=== PATIENT | female | born 1945 | race Caucasian/White ===

== ENCOUNTER 2017-06-08 14:34 | Emergency (ER) | payer MEDICARE, BC ==
[2015-12-17 11:53] VITALS: BMI 33.9
[~2017-06-08 14:34] MED LIST: ACETAMINOPHEN PO; ASPIRIN325 MG PO; ASPIRIN81 MG PO; BENADRYL25 MG PO; BENADRYL50 MG PO; CALCIUM 600+D T1 TA1 PO; ECOTRIN325 MG PO; EFFIENT10 MG PO; FISH OIL 1,2001 CAP PO; HCTZ25 MG PO; HYDROCODON-ACE1 EAC7 PO; ICAR C PLUS PO; IMDUR30 MG PO; ISOSORBIDE MONO30 M1 PO; LEVAQUIN500 MG PO; LISINOPRIL5 MG PO; MULTIPLE VITAMI1 TA1 PO; NIASPAN500 MG PO; NITROSTAT0.4 MG SL; OCUVITE TABLET1 TA1 PO; PLAVIX75 MG PO; PROZAC10 MG PO; PROZAC20 MG PO; ROBAXIN-750750 MG PO; SYNTHROID50 MCG PO; SYNTHROID75 MCG PO; SYSTANE 0.3-0.4%5 ML EACH EYE; TYLENOL ARTHRITIS; TYLENOL ARTHRITIS PO; VISION FORMULA 50+; VITAMIN C1000 MG PO; VITAMIN D3 PO; XARELTO15 MG PO; XARELTO20 MG PO; ZESTRIL40 MG PO
[2017-06-08 16:08] LABS: BASOPHILS 0.2 % (0-2); EOSINOPHILS 1.3 % (0-7); HEMATOCRIT 37.4 % (36.0-48.0); HEMOGLOBIN 12.2 g/dL (12-16); IMMATURE GRANULOCYTES 0.3 % (0-5); LYMPHOCYTES 27.2 % (15-50); MCH 30.1 pg (26.0-34.0); MCHC 32.6 g/dL (31.0-37.0); MCV 92.3 fL (80.0-100.0); MEAN PLATELET VOLUME 9.4 fL (7.4-10.4); MONOCYTES 8.8 % (2-11); NEUTROPHILS 62.2 % (40-80); PLATELET COUNT 197 10x3/uL (130-400); RBC 4.05 10x6/uL (4.00-5.40); RDW 14.8 % (11.5-14.5); WBC 6.3 10x3/uL (4.8-10.8)
[2017-06-08 16:31] LABS: ALBUMIN 3.9 g/dL (3.4-5.0); ALKALINE PHOSPHATASE 71 U/L (46-116); ALT (SGPT) 26 U/L (10-68); C-REACTIVE PROTEIN 3.3 mg/dL (0.0-0.9); CALC OSMOLALITY 286 mosm/kg (275-300); CALCIUM 9.1 mg/dL (8.5-10.1); CARBON DIOXIDE 22.9 mmol/L (21.0-32.0); CHLORIDE - SERUM 107 mmol/L (98-107); CREATININE - SERUM 0.8 mg/dL (0.6-1.3); GLUCOSE 85 mg/dL (74-106); POTASSIUM - SERUM 4.4 mmol/L (3.5-5.1); PROTEIN - SERUM 6.9 g/dL (6.4-8.2); SODIUM 142 mmol/L (136-145); UREA NITROGEN 27 mg/dL (7-18); eGFR NON AFRICAN AMERICAN 75 mL/min (90-120)
[2017-06-08 17:20] LABS: ERYTHROCYTE SEDIMENTATION RATE 21 mm/hr (0-30)
== END 2017-06-08 18:11 | disposition home or self-care (01) ==
LOC: D.ER 14:34
PROVIDERS: Physician Assistant Medical
DX: H53.9 Unspecified visual disturbance (principal); I44.0 Atrioventricular block, first degree

== ENCOUNTER 2017-06-08 19:53 | Emergency (ER) | payer MEDICARE, BC ==
[2015-12-17 11:53] VITALS: BMI 33.9
== END 2017-06-09 00:30 | disposition critical access hospital (66) ==
LOC: D.ER 19:53
DX: I63.9 Cerebral infarction, unspecified (principal); E11.9 Type 2 diabetes mellitus without complications

== ENCOUNTER 2017-06-15 10:11 | Emergency (ER) | payer MEDICARE, BC ==
[2015-12-17 11:53] VITALS: BMI 33.9
[2017-06-15 11:15] LABS: BASOPHILS 0.3 % (0-2); EOSINOPHILS 1.2 % (0-7); HEMATOCRIT 38.1 % (36.0-48.0); HEMOGLOBIN 12.6 g/dL (12-16); IMMATURE GRANULOCYTES 0.4 % (0-5); MCH 29.9 pg (26.0-34.0); MCHC 33.1 g/dL (31.0-37.0); MCV 90.3 fL (80.0-100.0); MEAN PLATELET VOLUME 9.3 fL (7.4-10.4); MONOCYTES 7.5 % (2-11); NEUTROPHILS 74.6 % (40-80); PLATELET COUNT 219 10x3/uL (130-400); RBC 4.22 10x6/uL (4.00-5.40); RDW 14.5 % (11.5-14.5); WBC 7.3 10x3/uL (4.8-10.8)
[2017-06-15 11:32] LABS: APTT 38.9 SECONDS (22.8-39.4); INR 0.98 (0.85-1.17); PROTIME 12.5 SECONDS (11.6-15.0)
[2017-06-15 11:42] LABS: ALBUMIN 3.8 g/dL (3.4-5.0); ALKALINE PHOSPHATASE 79 U/L (46-116); ALT (SGPT) 33 U/L (10-68); CALC OSMOLALITY 286 mosm/kg (275-300); CALCIUM 9.9 mg/dL (8.5-10.1); CARBON DIOXIDE 22.1 mmol/L (21.0-32.0); CHLORIDE - SERUM 106 mmol/L (98-107); GLUCOSE 89 mg/dL (74-106); POTASSIUM - SERUM 4.9 mmol/L (3.5-5.1); PROTEIN - SERUM 7.1 g/dL (6.4-8.2); SODIUM 141 mmol/L (136-145); UREA NITROGEN 31 mg/dL (7-18); eGFR NON AFRICAN AMERICAN 58 mL/min (90-120)
[2017-06-15 12:00] LABS: CKMB 1.5 U/L (0.0-3.6); MAGNESIUM - SERUM 1.7 mg/dL (1.8-2.4); TROPONIN-I < 0.017 ng/mL (0.000-0.060)
== END 2017-06-15 14:22 | disposition other institution (70) ==
LOC: D.ER 10:11
PROVIDERS: Family Medicine
DX: G45.9 Transient cerebral ischemic attack, unspecified (principal); I44.0 Atrioventricular block, first degree

== ENCOUNTER 2017-09-22 13:54 | Emergency (ER) | payer MEDICARE, BC ==
[~2017-09-22] VITALS: Ht 167.6 cm; Wt 85.5 kg
[2017-09-22 14:01] VITALS: Ht 167.6 cm; Wt 85.5 kg
[2017-09-22] MEDS ORDERED: LISINOPRIL10 MG PO (14:07)
[2017-09-22] MEDS ORDERED: PRADAXA150 MG PO (14:07)
[2017-09-22] MEDS ORDERED: PLAQUENIL200 MG PO (14:08)
[2017-09-22] MEDS ORDERED: CYMBALTA30 MG PO (14:08)
[2017-09-22] MEDS ORDERED: ACETAMINOPHEN500 M1 PO (14:09)
[2017-09-22] MEDS ORDERED: DETROL2 MG PO (14:09)
[2017-09-22] MEDS ORDERED: LANOXIN125 MCG PO ×2 (14:19→14:22)
[2017-09-22] MEDS ORDERED: METOPROLOL TART25 MG (14:20)
[2017-09-22] MEDS ORDERED: CRESTOR5 MG PO (14:21)
[2017-09-22 16:18] VITALS: BP 188/93
[2017-09-22] MEDS ORDERED: HYDROCODON-ACE1 EAC7 PO (17:29)
== END 2017-09-22 23:00 ==
LOC: D.ER 13:54
DX: S51.012A Laceration without foreign body of left elbow, initial encounter (principal); W01.0XXA Fall on same level from slipping, tripping and stumbling without subsequent striking against object, initial encounter; Y93.89 Activity, other specified; Y92.019 Unspecified place in single-family (private) house as the place of occurrence of the external cause; S40.012A Contusion of left shoulder, initial encounter; S40.011A Contusion of right shoulder, initial encounter; S70.01XA Contusion of right hip, initial encounter

== ENCOUNTER 2017-10-10 17:22 | Inpatient (IN) | payer MEDICARE, BC ==
[~2017-10-10] VITALS: Ht 165.1 cm; Wt 83.2 kg
--- NOTE | ~2017-10-10 | DS ---
PATIENT:LEA HUNTLEY :47 MEDICAL RECORD: [id number] DISCHARGE SUMMARY ADMISSION DATE: 10/10/17 DISCHARGE DATE: 10/12/17 DATE OF ADMISSION: 10/10/2017 DATE OF DISCHARGE: 10/12/2017 ADMISSION DIAGNOSES: Reported syncopal event, urinary tract infection, mild chest pain with elevated cardiac enzymes. DISCHARGE DIAGNOSES: Syncopal event, urinary tract infection, chest pain. CONSULTS: Dr. Simons, cardiology. PROCEDURES: CT of the head, no acute process. MRI/MRA of the head with a history of aneurysm, no abnormal findings. HOSPITAL COURSE: The patient was admitted to the Emergency Room, lethargic with reported syncopal event earlier. Troponin was negative. CK and CK-MB were mildly elevated consistent with dehydration with extensive history of coronary artery disease. Cardiology was consulted and with abnormal EKG, the patient was cleared for any acute coronary syndrome. Urine cultures were obtained. The patient started on IV Levaquin. Cultures showed E. coli sensitive to Levaquin. The patient improved. The patient changed to p.o. Levaquin. Still remains weak, has multiple comorbidities. records analysis manager consulted for rehab evaluation. The patient is feeling much better, remains afebrile, discharged to rehab in significantly improved condition. PHYSICAL EXAMINATION: VITAL SIGNS ON DISCHARGE: Temperature 98.2, blood pressure 136/67, heart rate 61, respirations 18, O2 saturation 95%. HEART: Regular rate and rhythm. LUNGS: Clear. ABDOMEN: Soft, nontender. Bowel sounds all 4 quadrants. EXTREMITIES: Present times 4. NEUROLOGIC: No focal deficits. SKIN: Warm and dry. No rash. LABORATORY DATA: CBC: White count 9.2, hemoglobin 10.3, hematocrit 32, platelets 168. Chemistry shows sodium 142, potassium 4.2, chloride 109, bicarbonate 22.7, BUN 33, creatinine improved to 1.2 from 1.7 on admission. DISPOSITION: Again, the patient is discharged to rehab in improved condition. DISCHARGE MEDICATIONS: Per med rec. See chart for further details. TRANSINT:[id number] Voice Confirmation ID: [id number] DOCUMENT ID: [id number] DISCHARGE SUMMARY REPORT [id number] LEA HUNTLEY LEONID PAVON DO at 0725 CC: [id number] DICTATION DATE: 10/12/17 2240 ORTHOTIST PROSTHETIST: 10/12/17 1613 DIS IN 10/12/17 [facility] [address] [place], [facility]
--- NOTE | ~2017-10-10 | HP ---
PATIENT: LEA HUNTLEY MEDICAL RECORD: [id number] ACCOUNT: [id number] LOCATION:D.MS Patricia6 : 47 ADMISSION DATE: 10/10/17 HISTORY AND PHYSICAL EXAMINATION HISTORY OF PRESENT ILLNESS: A 71-year-old female brought in to the hospital by her daughter with unclear syncopal episode, nausea, vomiting, generalized weakness, history of recent CVA times 2, history of recent fall with laceration to her elbow, history of cerebral aneurysm, recommendation for surgery, but unclear if she would tolerate intervention. She has been evaluated by neurosurgery in [place]. History of paroxysmal atrial fibrillation. ALLERGIES: LISTED PENICILLIN, SULFA, CEPHALOSPORINS. CURRENT MEDICATIONS: [place] 5 p.r.n. pain, multivitamins, nitroglycerin p.r.n., lisinopril 10 mg daily, Pradaxa 150 mg b.i.d., Cymbalta 30 mg daily, Plaquenil 400 mg b.i.d., metoprolol 12.5 t.i.d., Crestor, digoxin, Imdur, levothyroxine 75 mcg daily. PAST MEDICAL HISTORY: Also includes hypertension, coronary artery disease, has had stents and angioplasty, severe peripheral vascular disease, prior [place]. FAMILY HISTORY: Significant for parents with cardiovascular disease, siblings with heart disease, child with heart disease. SOCIAL HISTORY: . No tobacco, no alcohol, no illicit drug use. REVIEW OF SYSTEMS: CONSTITUTIONAL: No known change in weight. Gradual diminished appetite. No acute change. HEENT: Denies cephalgia, visual changes, tinnitus, epistaxis, or dysphagia. CARDIOVASCULAR: No initial chest pain. Complained of chest pain and pressure upon arrival to the Emergency Room. PULMONARY: Denies hemoptysis. Denies night sweats. GASTROINTESTINAL: Denies hematemesis, hematochezia, or melena. Had initial nausea and vomiting, no recurrence. GENITOURINARY: Pain with urination, acute onset yesterday with fever and chills. MUSCULOSKELETAL: No acute changes. ENDOCRINE: Denies polyuria, polydipsia, or polyphagia. PHYSICAL EXAMINATION: VITAL SIGNS: Temperature 98.6, blood pressure is 99/63, heart rate 64, respirations 17, O2 sat 97% with O2 at 2 liters. HEENT: Head: Normocephalic, atraumatic. Eyes: Pupils equally round, reactive to light and accommodation. Extraocular muscles are intact. Conjunctivae not injected. Ears: Canals patent. TMs are intact. Nose: Nares patent without drainage. Throat: No erythema. No exudates. NECK: Supple. No lymphadenopathy. No JVD. HEART: Regular rate and rhythm. No S3 or S4. No rub. LUNGS: Clear to auscultation bilaterally. Breathing is nonlabored. ABDOMEN: Soft, nontender. Bowel sounds all 4 quadrants. EXTREMITIES: Present times 4. NEUROLOGIC: No focal deficits, answers appropriately, is lethargic. HISTORY AND PHYSICAL [id number] LEA HUNTLEY LABORATORY DATA: CK is 220. CK-MB is 4.3. Troponin less than 0.017. ProBNP elevated at 2359. Repeat CK after fluids 82, CK-MB 0.8. Troponin remains negative. Urinalysis: Yellow, hazy, trace blood, positive nitrites, 1+ leukocyte esterase, 10-25 wbc's per high-powered field, many bacteria. Lactic acid 1.7. CBC: White count 12.3, hemoglobin 12.6, hematocrit 38.2, platelets 206. Sodium 140, potassium 4.4, chloride 105, bicarbonate 25.8, BUN 37, creatinine 1.6, calcium 9.4, AST 17, ALT 24, T-bili 0.69, alkaline phosphatase 95. Preliminary urine culture, gram-negative rocio. CT of the head; prior infarcts, no acute pathology. Chest x-ray; subsegmental atelectasis in left lower lobe, no other significant findings. ASSESSMENT AND PLAN: 1. Syncopal episode. CT of the head negative. History of aneurysm with recommendations for surgical repair. We will obtain MRA of the head. 2. Urinary tract infection. C&S pending. Allergies noted. We will continue Levaquin at this time. 3. Chest pain, abnormal EKG, elevated cardiac enzymes likely secondary to dehydration. We will consult her dampener, Dr. Rose with her extensive history. We will check dig level. Monitor blood pressure. TRANSINT:[id number] Voice Confirmation ID: [id number] DOCUMENT ID: [id number] LEONID DENNY DO at 0812 CC: [id number] DICTATION DATE: 10/11/17 0803 WEB MANAGER: 10/11/17 [address] [facility] [address] [id number]
--- NOTE | ~2017-10-10 | EC ---
PATIENT:LEA HUNTLEY DATE OF SERVICE: 10/10/17 SEX: F MEDICAL RECORD: [id number] DATE OF : 47 LOCATION:D.MS Patricia AGE OF PATIENT: 72 ADMISSION DATE: 10/10/17 REFERRING PHYSICIAN: INTERPRETING PHYSICIAN: THOMAS GARCIA MD ECHOCARDIOGRAM REPORT ECHO CHARGES 4 ECHO COMPLETE Date: 10/11 CLINICAL DIAGNOSIS: CHEST PAIN ECHOCARDIOGRAPHIC MEASUREMENTS (adult normal given) AC root (d.<3.7cm) 3.0 cm LV Septum d (<1.2 cm> 1.5 cm Valve Excursion 1.2 cm LV Septum (systole) 1.7 cm Left Atria (s.<4.0cm> 4.2 cm LVPW d(<1.2cm) 1.3 cm RV (d.<2.3cm) 3.4 cm LVPW (sytole) 1.5 cm LV diastole(<5.6CM) 4.6 cm MV E-F(>70mm/sec) cm LV systole 3.5 cm LVOT Diameter 1.9 cm MV exc.(>10mm) 1.6 cm Est.ejection fraction (50-75%) % DOPPLER: LVIT cm/sec A 61.0 cm/sec E 79.0 cm/sec LA cm/sec RVSP 20 mmHg LVOT 95 cm/sec AOP1/2T m/s Asc. Ao 153 cm/sec RVOT 79 cm/sec RA cm/sec PA 115 cm/sec AV Gradient Peak 9.31 mmHg AV Mean 4.68 mmHg AV Area 1.6 cm MV Gradient Peak 3.42 mmHg MV Mean 1.32 mmHg MV Area cm COMMENTS: It Integration Architect: 2 DAMON JACOBS Upset Operator: 4 Dr. Garcia TAPE# PACS Pericardial Effusion N DATE OF SERVICE: PROCEDURE: Transthoracic echocardiogram. FINDINGS: 1. Left ventricle shows evidence of mild left ventricular hypertrophy. Inflow characteristics are normal. Ejection fraction is 45% to 50%. Has posterior akinesis and inferior mild hypokinesis. Rest of the santiago have normal structure and function. 2. The left atrium is mildly dilated. ECHOCARDIOGRAM REPORT [id number] LEA HUNTLEY 3. Aortic valve is grossly normal. Difficult to visualize. There is no evidence of significant stenosis or regurgitation. 4. The mitral valve has normal structure and function. There is [id number] mitral regurgitation. 5. Tricuspid valve has trace tricuspid regurgitation. RVSP is normal. 6. The right ventricle is mildly dilated. 7. The right atrium is mildly dilated. 8. The pulmonic valve is grossly normal. 9. There is no pericardial effusion. 10. The IVC is shown to be normal size and collapses with inspiration with normal CVP. CONCLUSIONS: The patient has evidence of mild left ventricular hypertrophy. There is regional wall motion abnormalities that is consistent with a possible old infarction. TRANSINT:[id number] Voice Confirmation ID: [id number] DOCUMENT ID: [id number] THOMAS GARCIA MD at 0737 CC: [id number] DICTATION DATE: 10/16/17900 COTTON AGENT: 10/16/17914 DIS IN 10/12/17 [facility] [address] [place] [address]
[~2017-10-10 17:22] MED LIST changes: +ACETAMINOPHEN500 M1 PO; +CRESTOR5 MG PO; +CYMBALTA30 MG PO; +DETROL2 MG PO; +LANOXIN125 MCG PO; +LISINOPRIL10 MG PO; +METOPROLOL TART25 MG; +PLAQUENIL200 MG PO; +PRADAXA150 MG PO
[2017-10-10 18:39] LABS: BASOPHILS 0.1 % (0-2); EOSINOPHILS 0.2 % (0-7); HEMATOCRIT 38.2 % (36.0-48.0); HEMOGLOBIN 12.6 g/dL (12-16); IMMATURE GRANULOCYTES 0.2 % (0-5); LYMPHOCYTES 4.3 % (15-50); MCH 29.8 pg (26.0-34.0); MCV 90.3 fL (80.0-100.0); MEAN PLATELET VOLUME 9.4 fL (7.4-10.4); MONOCYTES 3.9 % (2-11); NEUTROPHILS 91.3 % (40-80); PLATELET COUNT 206 10x3/uL (130-400); RBC 4.23 10x6/uL (4.00-5.40); RDW 14.9 % (11.5-14.5); WBC 12.3 10x3/uL (4.8-10.8)
[2017-10-10 19:04] LABS: ALBUMIN 3.9 g/dL (3.4-5.0); ALKALINE PHOSPHATASE 95 U/L (46-116); ALT (SGPT) 24 U/L (10-68); BILIRUBIN - TOTAL 0.69 mg/dL (0.2-1.3); CALC OSMOLALITY 287 mosm/kg (275-300); CALCIUM 9.4 mg/dL (8.5-10.1); CARBON DIOXIDE 25.8 mmol/L (21.0-32.0); CHLORIDE - SERUM 105 mmol/L (98-107); CREATININE - SERUM 1.6 mg/dL (0.6-1.3); GLUCOSE 93 mg/dL (74-106); POTASSIUM - SERUM 4.4 mmol/L (3.5-5.1); PROTEIN - SERUM 7.6 g/dL (6.4-8.2); SODIUM 140 mmol/L (136-145); UREA NITROGEN 37 mg/dL (7-18); eGFR NON AFRICAN AMERICAN 34 mL/min (90-120)
[2017-10-10 19:26] LABS: CKMB 0.8 U/L (0.0-3.6); CREATINE KINASE 61 UL (21-215)
[2017-10-10 19:30] LABS: TROPONIN-I < 0.017 ng/mL (0.000-0.060)
[2017-10-10 20:11] LABS: APPEARANCE HAZY (CLEAR); BACTERIA MANY /hpf (NONE SEEN); BILIRUBIN NEGATIVE (NEGATIVE); COLOR YELLOW (YELLOW); EPITHELIAL CELLS 0-5 /hpf (0-5); GLUCOSE NEGATIVE (NEGATIVE); KETONE NEGATIVE (NEGATIVE); NITRITE POSITIVE (NEGATIVE); PROTEIN NEGATIVE (NEGATIVE); RED CELLS - URINE 0-5 /hpf (0-5); UROBILINOGEN NORMAL (NORMAL)
[2017-10-10 22:12] LABS: CKMB 0.8 U/L (0.0-3.6); CREATINE KINASE 82 UL (21-215); TROPONIN-I < 0.017 ng/mL (0.000-0.060)
[2017-10-10 23:25] VITALS: BP 134/59
[2017-10-11] VITALS (7 sets, daily range): BP systolic 99–135; BP diastolic 40–80; Ht 165.1 cm; Wt 83.2 kg
[2017-10-11 06:03] LABS: CKMB 4.3 U/L (0.0-3.6); TROPONIN-I < 0.017 ng/mL (0.000-0.060)
[2017-10-11 07:29] LABS: CREATINE KINASE 220 UL (21-215)
[2017-10-11 09:38] LABS: CKMB 6.5 U/L (0.0-3.6); CREATINE KINASE 307 UL (21-215); TROPONIN-I < 0.017 ng/mL (0.000-0.060)
[2017-10-12 00:06] VITALS: BP 147/67
[2017-10-12 03:47] VITALS: BP 130/76
[2017-10-12 03:57] VITALS: BP 130/76
[2017-10-12 05:30] LABS: BASOPHILS 0.1 % (0-2); EOSINOPHILS 0.9 % (0-7); HEMOGLOBIN 10.3 g/dL (12-16); IMMATURE GRANULOCYTES 0.3 % (0-5); LYMPHOCYTES 9.6 % (15-50); MCH 29.3 pg (26.0-34.0); MCHC 32.2 g/dL (31.0-37.0); MCV 91.2 fL (80.0-100.0); MEAN PLATELET VOLUME 9.4 fL (7.4-10.4); MONOCYTES 9.4 % (2-11); NEUTROPHILS 79.7 % (40-80); PLATELET COUNT 168 10x3/uL (130-400); RBC 3.51 10x6/uL (4.00-5.40); RDW 15.2 % (11.5-14.5)
[2017-10-12 05:37] LABS: WBC 9.2 10x3/uL (4.8-10.8)
[2017-10-12 06:33] LABS: CALC OSMOLALITY 289 mosm/kg (275-300); CALCIUM 8.2 mg/dL (8.5-10.1); CARBON DIOXIDE 22.7 mmol/L (21.0-32.0); CHLORIDE - SERUM 109 mmol/L (98-107); CREATININE - SERUM 1.2 mg/dL (0.6-1.3); GLUCOSE 105 mg/dL (74-106); MAGNESIUM - SERUM 1.6 mg/dL (1.8-2.4); PHOSPHOROUS 2.9 mg/dL (2.5-4.9); POTASSIUM - SERUM 4.2 mmol/L (3.5-5.1); PRO BNP 2015 pg/mL (0-125); SODIUM 142 mmol/L (136-145); UREA NITROGEN 33 mg/dL (7-18); eGFR NON AFRICAN AMERICAN 47 mL/min (90-120)
[2017-10-12 06:43] LABS: DIGOXIN < 0.20 ng/mL (0.90-2.00)
[2017-10-12 07:56] VITALS: BP 169/0; BP 169/70
[2017-10-12 12:28] VITALS: BP 136/67
[2017-10-12] MEDS ORDERED: LEVAQUIN500 MG PO (15:39)
[2017-10-12] MEDS ORDERED: FLORAJEN3 CAPS460 MG PO (15:42)
== END 2017-10-12 18:34 | DRG 690 ==
LOC: D.ER 17:22 → D.EDHOLD 20:52 → D.MS 20:52 → D.SDCHOLD 10-11 12:49 → D.MS 10-11 12:52
PROVIDERS: Emergency Medicine; Family Medicine
DX: N39.0 Urinary tract infection, site not specified (principal); E86.0 Dehydration; R55 Syncope and collapse; R53.1 Weakness; I48.0 Paroxysmal atrial fibrillation; I10 Essential (primary) hypertension; I25.10 Atherosclerotic heart disease of native coronary artery without angina pectoris; I73.9 Peripheral vascular disease, unspecified; R07.89 Other chest pain; T67.5XXA Heat exhaustion, unspecified, initial encounter; B96.20 Unspecified Escherichia coli [E. coli] as the cause of diseases classified elsewhere

== ENCOUNTER 2017-10-12 19:00 | Inpatient (IN) | payer MEDICARE, BC ==
[~2017-10-12] VITALS: Ht 165.1 cm; Wt 83.0 kg
--- NOTE | ~2017-10-12 | RHP ---
PATIENT: LEA HUNTLEY MEDICAL RECORD: [id number] ACCOUNT: [id number] LOCATION:[facility]1110 : 47 ADMISSION DATE: 10/12/17 REHABILITATION HISTORY AND PHYSICAL EXAMINATION POST ADMISSION PHYSICIAN EXAMINATION POST-ADMISSION PHYSICAL EXAMINATION AND HISTORY AND PHYSICAL DATE OF ADMISSION: 10/12/2017 ADMITTING DIAGNOSIS: E. coli urinary tract infection. HISTORY OF PRESENT ILLNESS: The patient is an 88-year-old female patient admitted to the inpatient rehab with debility secondary to E. coli UTI. She presented to the ED on 10/10 with episode of chills and fever with weakness after a syncopal episode. The patient recalls going out to a freezer trying to get some food for dinner. She felt weak on her way back from the freezer. She sat outside. It was rather hot and she may have passed out, was found and had decreased sensorium by her 14-year-old granddaughter without any specific complaints other than feeling tired and weak. States that she has been feeling like she had chills earlier that day, had noticed some dysuria, polyuria, and incontinence. In the ER, she started having some mid sternal chest discomfort, which was relieved with analgesics without any specific intervention. She reports she has had 2 CVAs in the last couple of months and recently been diagnosed with paroxysmal atrial fib. She was treated at [facility] in May for CVA. The patient has a history of hypertension, stents and angioplasty, coronary artery disease, peripheral vascular disease, [place], thyroid problems, and shortness of breath on exertion. She uses CPAP at home during the night, but she is not on home O2. She is currently requiring 2 liters of O2 to maintain her sats. Prior to this illness, she was independent with ADLs and using a single-point cane for ambulation. She is currently mod assist with rolling walker and ADLs. She requires intensive inpatient therapy to regain her strength and endurance in order to return home where she lives with her and hopefully get back at her prior level of functioning or better. Comorbidities in this patient include syncope, atrial fib, altered consciousness, left lower lobe atelectasis, coronary artery disease, peripheral vascular disease, history of stents and angioplasty, prior [place], history of aneurysm, history of stroke, thyroid problems, weakness, and arthritis. PAST MEDICAL HISTORY: Significant for CVA. She has got a history of thyroid problems, history of coronary artery disease, peripheral vascular disease, hypertension, shortness of breath. PAST SURGICAL HISTORY: Includes gallbladder surgery, appendectomy, hysterectomy, multiple coronary stents. She has had vein stripping and arteriogram. ALLERGIES: PENICILLINS, SULFA, CEPHALOSPORINS, ADHESIVE TAPE, AND LASIX. CURRENT MEDICATIONS: Include Crestor 5 mg daily. She is on Detrol 2 mg daily, Plaquenil 200 mg b.i.d. She is on multivitamin daily, lisinopril 10 mg daily, Synthroid 75 mcg daily, Levaquin 500 mg daily, Floranex 460 mg daily, Cymbalta 30 mg daily, digoxin 0.125 mg daily, polyethylene glycol 17 grams in 8 ounces of water daily, Nitrostat 0.4 mg every 5 minutes p.r.n. pain, metoprolol 12.5 mg b.i.d., isosorbide 30 mg at bedtime, Pradaxa 150 mg b.i.d., calcium 500 mg at HISTORY AND PHYSICAL [id number] LEA HUNTLEY bedtime, and Tylenol 1000 mg b.i.d. HABITS: No alcohol or tobacco use. FAMILY HISTORY: Noncontributory. SOCIAL HISTORY: The patient hopes to return back home and get back to her prior level of functioning. REVIEW OF SYSTEMS: GENERAL: Does complain of weakness. HEENT: Denies cold, cough, or congestion. CARDIOVASCULAR: Denies chest pain. PHYSICAL EXAMINATION: VITAL SIGNS: Stable, afebrile. Generally a somewhat obese female, in no distress upon exam. HEENT: Normocephalic and atraumatic. Mucosa moist. NECK: Supple. No lymphadenopathy. LUNGS: Clear at this time. HEART: Irregular rate and rhythm. ABDOMEN: Benign. EXTREMITIES: No clubbing, cyanosis, or edema. NEUROLOGIC: Does have symptoms consistent with previous CVA and also proximal muscle weakness. LABORATORY DATA: White count of 6.3, H&H of 11 and 33, and platelet count is 171. Her sodium is 141, potassium 4.0, BUN and creatinine of 22 and 1.2, and blood sugar is noted to be 108. ASSESSMENT: This is a 71-year-old female patient admitted to the rehab with a working diagnosis of debility secondary to UTI complicated by history of CVA. The patient has potential to make improvement. We will institute the following multidisciplinary therapies including, but not limited to physical, occupational, respiratory, speech, nutritional services, prosthetics and orthotics. Given her complex medical condition and risks for more complications, rehabilitation services cannot be provided at a low level of care such as a longterm facility. PLAN: 1. Admit to [facility] for intensive inpatient therapy to include the following disciplines: A. Physical therapy to improve gait, all transfer skills and bed mobility to a modified independent level. B. Occupational therapy to improve activities of daily living to a modified independent level. C. Case management to assist with discharge planning and placement options. D. Nutrition to assist with nutritional needs. E. Rehabilitation nursing to assist in monitoring the patient's underlying medical conditions and to assist with any type of bowel or bladder management. 2. The patient's current medications and medical care will be continued. 3. The patient will be placed on standard fall precautions. 4. We will discuss this patient during care team staff meeting next week. 5. I went ahead and discussed this case with her daughter, started back on appropriate home medications, and answered appropriate questions. I will follow HISTORY AND PHYSICAL [id number] LEA HUNTLEY up on Sunday morning or earlier if necessary. TRANSINT:[id number] Voice Confirmation ID: [id number] DOCUMENT ID: [id number] HALLE notes whether there has been none or any medical/functional change since admission: - No change since preadmission screen. HALLE attests patient continues to be appropriate for IRF: - Continues to be appropriate. PAUL VILLANUEVA MD at 1516 CC: [id number] DICTATION DATE: 10/13/17 1007 HEALTH PROMOTION EDUCATOR: 10/13/17 1138 DIS IN 10/19/17 [facility] [address] [place] [address]
[~2017-10-12 19:00] MED LIST changes: +FLORAJEN3 CAPS460 MG PO
[2017-10-12 23:17] VITALS: BP 166/83
[2017-10-13 05:05] LABS: BASOPHILS 0.2 % (0-2); EOSINOPHILS 1.3 % (0-7); HEMATOCRIT 33.3 % (36.0-48.0); HEMOGLOBIN 11.1 g/dL (12-16); IMMATURE GRANULOCYTES 0.3 % (0-5); LYMPHOCYTES 21.1 % (15-50); MCH 30.4 pg (26.0-34.0); MCHC 33.3 g/dL (31.0-37.0); MCV 91.2 fL (80.0-100.0); MEAN PLATELET VOLUME 9.1 fL (7.4-10.4); MONOCYTES 14.2 % (2-11); NEUTROPHILS 62.9 % (40-80); PLATELET COUNT 171 10x3/uL (130-400); RBC 3.65 10x6/uL (4.00-5.40); RDW 14.9 % (11.5-14.5)
[2017-10-13 05:06] LABS: WBC 6.3 10x3/uL (4.8-10.8)
[2017-10-13 05:22] LABS: ANION GAP 10.7 mmol/L (8-16); CALCIUM 8.6 mg/dL (8.5-10.1); CARBON DIOXIDE 25.3 mmol/L (21.0-32.0); CREATININE - SERUM 1.2 mg/dL (0.6-1.3)
[2017-10-13 07:57] VITALS: Ht 165.1 cm; Wt 83.0 kg
[2017-10-13 09:14] VITALS: BP 152/69
[2017-10-13 20:30] VITALS: BP 196/83
[2017-10-14 08:45] VITALS: BP 159/79
[2017-10-14 19:55] VITALS: BP 181/86
[2017-10-15 06:30] LABS: BASOPHILS 0.4 % (0-2); EOSINOPHILS 1.7 % (0-7); LYMPHOCYTES 20.6 % (15-50); MCHC 32.4 g/dL (31.0-37.0); MCV 89.4 fL (80.0-100.0); MEAN PLATELET VOLUME 9.4 fL (7.4-10.4); MONOCYTES 11.4 % (2-11); NEUTROPHILS 64.9 % (40-80); RBC 4.14 10x6/uL (4.00-5.40); RDW 14.7 % (11.5-14.5); WBC 7.8 10x3/uL (4.8-10.8)
[2017-10-15 06:40] LABS: PLATELET COUNT 239 10x3/uL (130-400)
[2017-10-15 07:21] LABS: CALC OSMOLALITY 286 mosm/kg (275-300); CALCIUM 8.9 mg/dL (8.5-10.1); CARBON DIOXIDE 23.2 mmol/L (21.0-32.0); CHLORIDE - SERUM 107 mmol/L (98-107); CREATININE - SERUM 1.1 mg/dL (0.6-1.3); GLUCOSE 101 mg/dL (74-106); POTASSIUM - SERUM 4.1 mmol/L (3.5-5.1); SODIUM 142 mmol/L (136-145); UREA NITROGEN 23 mg/dL (7-18); eGFR NON AFRICAN AMERICAN 52 mL/min (90-120)
[2017-10-15 07:30] LABS: DIGOXIN < 0.20 ng/mL (0.90-2.00)
[2017-10-15 08:00] VITALS: BP 133/97
[2017-10-15 19:00] VITALS: BP 164/108
[2017-10-16 08:00] VITALS: BP 138/83
[2017-10-16 15:01] VITALS: BP 151/82
[2017-10-16 20:00] VITALS: BP 176/86
[2017-10-17 08:00] VITALS: BP 125/65
[2017-10-17 19:00] VITALS: BP 178/67
[2017-10-18 08:00] VITALS: BP 136/72
[2017-10-18 19:00] VITALS: BP 197/92
[2017-10-18 22:35] VITALS: BP 158/70
[2017-10-19 05:12] LABS: BASOPHILS 0.1 % (0-2); EOSINOPHILS 1.7 % (0-7); HEMOGLOBIN 10.7 g/dL (12-16); IMMATURE GRANULOCYTES 1.2 % (0-5); LYMPHOCYTES 23.3 % (15-50); MCH 29.1 pg (26.0-34.0); MCHC 32.4 g/dL (31.0-37.0); MCV 89.7 fL (80.0-100.0); MEAN PLATELET VOLUME 8.9 fL (7.4-10.4); MONOCYTES 10.1 % (2-11); NEUTROPHILS 63.6 % (40-80); PLATELET COUNT 205 10x3/uL (130-400); RBC 3.68 10x6/uL (4.00-5.40); WBC 6.9 10x3/uL (4.8-10.8)
[2017-10-19 05:33] LABS: ANION GAP 11.3 mmol/L (8-16); CALCIUM 8.4 mg/dL (8.5-10.1); CREATININE - SERUM 1.2 mg/dL (0.6-1.3); POTASSIUM - SERUM 4.3 mmol/L (3.5-5.1)
[2017-10-19 08:00] VITALS: BP 148/68
[2017-10-19] MEDS ORDERED: DETROL LA2 MG PO (09:13)
[2017-10-19] MEDS ORDERED: PLAQUENIL200 MG PO (09:13)
== END 2017-10-19 13:43 | disposition home health service (06) | DRG 690 ==
LOC: D.REHAB 19:00
PROVIDERS: Emergency Medicine
DX: N39.0 Urinary tract infection, site not specified (principal); R55 Syncope and collapse; I48.91 Unspecified atrial fibrillation; R41.82 Altered mental status, unspecified; I25.10 Atherosclerotic heart disease of native coronary artery without angina pectoris; I73.9 Peripheral vascular disease, unspecified; Z95.5 Presence of coronary angioplasty implant and graft; R53.1 Weakness; M19.90 Unspecified osteoarthritis, unspecified site; I10 Essential (primary) hypertension; E78.5 Hyperlipidemia, unspecified; B96.20 Unspecified Escherichia coli [E. coli] as the cause of diseases classified elsewhere; I25.2 Old myocardial infarction

== ENCOUNTER → 2018-08-02 09:24 | Outpatient (CLI) | payer MEDICARE, BC ==
[2018-05-24 16:38] VITALS: BMI 32.5
[~2018-08-02 09:24] MED LIST changes: +BAYER CHEWABLE81 MG PO; +DETROL LA2 MG PO; +DETROL1 MG PO; -METOPROLOL TART25 MG; +METOPROLOL TART25 MG PO
== END | disposition home or self-care (01) ==
LOC: D.HCCARDIO 09:24
PROVIDERS: ATTEND Internal Medicine Cardiovascular Disease
DX: I34.0 Nonrheumatic mitral (valve) insufficiency (principal)

== ENCOUNTER → 2020-07-09 09:38 | Outpatient (CLI) | payer MEDICARE ==
[2018-05-24 16:38] VITALS: BMI 32.5
== END | disposition home or self-care (01) ==
LOC: D.HCCECHO 09:38
PROVIDERS: ATTEND Internal Medicine Cardiovascular Disease
DX: I25.10 Atherosclerotic heart disease of native coronary artery without angina pectoris (principal)

== ENCOUNTER 2020-08-25 07:00 | Observation (INO) | payer MEDICARE ==
[~2020-08-25] VITALS: Ht 165.1 cm; Wt 86.4 kg
--- NOTE | ~2020-08-25 | HEMODYNAMI ---
PATIENT:LEA HUNTLEY MEDICAL RECORD: [id number] : 47 LOCATION:[address] ADMISSION DATE: 08/25/20 Generatedon:18:05 Patient name: LEA HUNTLEY Patient #: [id number] SSN: [id number] : 1945 Date of study: 08/26/2020 Page: Of Hemodynamic Procedure Report Patient Data Patient Demographics Procedure consent was obtained First Name: LEA Gender: Female Last Name: AUDI : 1945 [facility] Initial: L Age: 74 year(s) Patient #: [id number] Race: SSN: [id number] Additional ID: [id number] Contact details [address]: [address] [place] [address] State: [place] City: [place] Zip code: [address] Past Medical History Allergies Allergen Reaction Date Comments Reported Sulfa drugs 05/25/2018 Adhesive tape 05/25/2018 Penicillins 05/25/2018 Natural rubber 05/25/2018 and latex Other allergy 05/25/2018 CEPHALOSPORINS Other allergy 05/27/2018 PCN, Sulfa, adhesive tape, cephalosporins, latex Other allergy 08/26/2020 PCN, CEPHALOSPORINS, SULFA, SEE CHART FOR MORE Admission Admission Data Admission Date: 08/25/2020 Admission Time: 14:35 Arrival Date: 08/26/2020 Arrival Time: 0:00 Admit Source: Other Insurance Payor: Medicare Room #: D.2124 [facility] #: [id number] Height (in.): 65 BSA: 1.94 (m2) Height (cm.): 165.1 BMI: 31.68 (kg/m2) Weight (lbs.): 190.39 Weight (kg.): 86.36 Lab Results Lab Result Date: 08/26/2020 Lab Result Time: 0:00 Biochemistry Name Units Result Min Max BUN mg/dl 33 --(----)-* 7 18 CK-MB ng/ml 1.8 --(-*--)-- 0 3.6 Creatinine mg/dl 1.2 --(---*)-- 0.6 1.3 eGFR ml/min 47 *-(----)-- 90 120 NONAFRICAN Troponin l ng/ml 0.031 --(--*-)-- 0 0.06 CBC Name Units Result Min Max Hematocrit % 37.6 *-(----)-- 42 54 Hemoglobin g/dl 12.5 *-(----)-- 13.5 17.5 Procedure Procedure Types Cath Procedure Diagnostic Procedure C [facility] w/Coronaries Sedation Charges Moderate Sedation 25-39 minutes Procedure Description Procedure Date Procedure Date: 08/26/2020 Procedure Start Time: 7:34 Procedure End Time: 8:02 Procedure Staff Name Function Michael Rose MD Performing Physician Lilly Perez RT Monitor Kevyn Gifford RN Nurse Babar Mayfield RN Nurse Procedure Data Cath Procedure Fluoroscopy Diagnostic fluoroscopy Total fluoroscopy Time: 6.7 time: 6.7 min min Diagnostic fluoroscopy Total fluoroscopy dose: 660 dose: 660 mGy mGy Contrast Material Contrast Material Type Amount (ml) Isovue 370 64 Entry Location Entry Primary Successful Side Size Upsize Upsize Entry Closure Garcia ccessful Closure Location (Fr) 1 (Fr) 2 (Fr) Remarks Device Remarks Femoral Right 5 Fr Mechanical vein Compression Femoral Right 5 Fr Exoseal artery Estimated blood loss: 5 ml Diagnostic catheters Device Type Used For End Catheter Placement MULTIPACK JL 4.0 5Fr Procedure catheter MULTIPACK 3DRC 5Fr Procedure catheter DIAGNOSTIC AL1 5Fr Procedure catheter ([id number]) MULTIPACK Pigtail 5 Fr Procedure catheter Procedure Complications No complications Procedure Medications Medication Administration Route Dosage 0.9% NaCl I.V. 100 ml/hr Oxygen etCO2 Nasal cannula 3 l/min Heparin Flush Bag added to field 2 bags (1000units/500ml NS) Lidocaine 2% added to field 20 Versed I.V. 0.5 mg Fentanyl I.V. 25 mcg Hemodynamics Rest BSA: 1.94 (m2) HGB: 12.5 (g/dl) O2 Consumption: Estimated: 170.48 (ml/min) O2 Co nsumption indexed: Estimated:87.88 (ml/min/m) Heart Rate: 61 (bpm) Pressure Samples Time Site Value (mmHg) Purpose Heart Use Rate(bpm) 7:53 LV 121/5,15 Snapshot 52 7:55 AO 137/57(85) Pullback 56 7:55 LV 149/12,33 Pullback 56 Gradients Valve Time Site 1 Site 2 Mean SEP/DFP Peak To Heart Use (mmHg) (sec/min) Peak Rate (mmHg) (bpm) Aortic 7:55 LV AO 10 4 12 56 149/12,33 137/57(85) Calculations Valve P-P Mean Valve Index Valve Source Name Gradient Area Flow (cm2) Aortic 12 10 12 10 Snapshots Pre Cath Intra NCS Post Cath Vital Signs Time Heart Resp SPO2 etCO2 NIBP (mmHg) Rhythm Pain Sedation Rate (ipm) (%) (mmHg) Status Level (bpm) 7:24:37 61 16 100 18 191/89(137) NSR 0 (11) 10(A) , No pain 7:29:01 57 26 99 24 162/78(144) SB 0 (11) 9(A) , No pain 7:34:23 56 12 95 12 118/71(97) SB 0 (11) 9(A) , No pain 7:38:39 55 11 94 14.2 130/72(104) SB 0 (11) 9(A) , No pain 7:42:59 55 13 95 21 126/67(97) SB 0 (11) 9(A) , No pain 7:47:15 55 24 96 27 124/65(105) SB 0 (11) 9(A) , No pain 7:51:38 56 12 96 27.8 112/59(88) SB 0 (11) 9(A) , No pain 7:55:53 56 30 97 30 126/63(101) SB 0 (11) 10(A) , No pain 8:00:53 57 36 97 27 140/72(110) SB 0 (11) 10(A) , No pain 8:04:52 19.5 No Cuff SB 0 (11) 10(A) , No pain Medications Time Medication Route Dose Verified Delivered Reason Notes Effe ctiveness by by 7:25:03 0.9% NaCl I.V. 100 Michael Babar used for ml/hr Milton Mayfield rug inspector 7:25:13 Oxygen etCO2 3 Michael Babar used for Nasal l/min Milton Mayfield rug inspector cannula 7:25:22 Heparin Flush added 2 Michael Babar used for Bag to bags Milton Mayfield rug inspector (1000units/500ml field NS) 7:25:34 Lidocaine 2% added 20ml Michael Babar for local to vial Milton Mayfield RN anesthetic field 7:26:29 Versed I.V. 0.5 Michael Babar for mg Milton Mayfield RN sedation 7:26:36 Fentanyl I.V. 25 Michael Babar for mcg Milton Mayfield RN sedation Procedure Log Time Note 7:05:02 Informed consent obtained and on chart 7:05:18 Diagnostic Cath Status : Urgent 7:05:32 Admit Source: Other 7:05:34 ACC Patient presents with Unstable Angina CCS Anginal Class 2--Slight limitation of ordinary activity. 7:05:37 Procedure Status Urgent Heart Cath (IP). 7:05:40 Kevyn Gifford RN sent for patient. Start room use. 7:05:55 Time tracking: Regular hours (M-F 7:00 - 5:00) 7:06:00 Plan of Care:Hemodynamics will remain stable., Cardiac rhythm will remain stable., Comfort level will be maintained., Respiratory function will remain adequate., Patient/ family verbilizes understanding of procedure., Procedure tolerated without complication., Recovers from procedure without complications.. 7:06:13 H&P Date Dictated: 08/25/2020 Within 30 days and on chart.. 7:06:16 Patient NPO since Midnight. 7:06:53 Patient allergic to Other allergyPCN, CEPHALOSPORINS, SULFA, SEE CHART FOR MORE 7:07:33 Lab Result : BUN 33 mg/dl 7:07:33 Lab Result : Hemoglobin 12.5 g/dl 7:07:33 Lab Result : eGFR NONAFRICAN 47 ml/min 7:07:33 Lab Result : Troponin l 0.031 ng/ml 7:07:33 Lab Result : Creatinine 1.2 mg/dl 7:07:33 Lab Result : CK-MB 1.8 ng/ml 7:07:33 Lab Result : Hematocrit 37.6 % 7:07:38 Arrival Date: 08/26/2020 12:00:00 AM 7:07:41 Patient Height : 65 inches 7:07:46 Patient Weight : 190.39 lbs 7:07:51 Insurance Payor : Medicare 7:09:45 Use device set Femoral Dx 7:13:41 Lab results completed and on chart. 7:13:45 Stress Test: no; N/A ? 7:13:46 Alarms reviewed by R. N. 7:13:47 Sharps counted by scrub and verified by R.N. 7:16:37 Patient received from Med II to CCL 1 Alert and oriented. Tansferred to table in Supine position. 7:16:45 Warm blankets applied, and tyrone hugger turned on for patient comfort. 7:16:46 Correct patient and procedure confirmed by team. 7:16:46 ECG and BP/O2 sat monitors applied to patient. 7:16:47 Full Disclosure recording started 7:16:48 Pre-procedure instructions explained to patient. 7:16:49 Pre-op teaching completed and patient verbalized understanding. 7:17:04 Family in patients room. 7:17:08 Is the patient allergic to Iodine/contrast media? No. 7:17:10 Was the patient premedicated? Yes 7:23:11 Vital chart was started 7:23:16 Rhythm: sinus rhythm 7:23:40 Patient diabetic? No. 7:23:43 Previous problem with sedation/anesthesia? No ? 7:23:44 Snore? Yes 7:23:46 Sleep apnea? No 7:23:46 Deviated septum? No 7:23:47 Opens mouth fully? Yes 7:23:48 Sticks out tongue? Yes 7:24:05 Baseline sample Acquired. 7:24:51 Airway obstruction? No ? 7:24:54 Dentures? No ? 7:25:03 0.9% NaCl 100 ml/hr I.V. was administered by Babar Mayfield RN; used for procedure; Verbal order read back and verified. 7:25:06 Is patient on blood thinner?Yes 7:25:11 ACC The patient was administered the following blood thiners within the last 24 hours: Xarelto 7:25:13 Oxygen 3 l/min etCO2 Nasal cannula was administered by Babar Mayfield RN; used for procedure; Verbal order read back and verified. 7:25:14 If diabetic: On Metformin? N/A 7:25:16 Patient not . Patient is over age 55. 7:25:22 Heparin Flush Bag (1000units/500ml NS) 2 bags added to field was administered by Babar Mayfield RN; used for procedure; Verbal order read back and verified. 7:25:22 Pre procedure: right dorsailis pedis pulse 1+ Palpable, but thready & weak; easily obliterated 7:25:24 Patient pain scale 0/10 ?. 7:25:30 IV patent on arrival in left antecubital with 0.9% NaCl at KVO. 7:25:34 Lidocaine 2% 20ml vial added to field was administered by Babar Mayfield RN; for local anesthetic; Verbal order read back and verified. 7:25:34 Right groin area was prepped with chlora-prep and draped in sterile fashion 7:25:38 --------ALL STOP TIME OUT------ 7:25:39 Final Timeout: patient, procedure, and site verified with staff and physician. All members of the team are in agreement. 7:25:40 Right groin site verified by team. 7:25:44 Fire Safety Assessment: A--An alcohol-based skin anteseptic being used preoperatively., C--Open oxygen or nitrous oxide is being used., D--An ESU, laser, or fiber-optic light is being used. 7:25:47 Physical assessment completed. ASA score P 2 - A patient with mild systemic disease as per Michael Rose MD. 7:25:50 3a) 45-59 Moderately reduced kidney function. 7:25:52 Maximum allowable contrast dose (3.7 X eGFR X 0.75)130 ml. 7:25:57 Sedation plan: IV Moderate Sedation Medication:Versed, Fentanyl 7:26:01 ACIST Syringe (97083) opened to sterile field. 7:26:01 Bag Decanter () opened to sterile field. 7:26:02 Medline Cath Pack ([id number]) opened to sterile field. 7:26:03 ACIST Hand Control (17015) opened to sterile field. 7:26:03 ACIST Manifold (61971) opened to sterile field. 7:26:04 DIAGNOSTIC Multipack 5Fr catheter set ([id number]) opened to sterile field. 7:26:05 SHEATH 5FR [place] (CHC807) opened to sterile field. 7:26:06 EMERALD Guide Wire (177-581) opened to sterile field. 7:26:08 Tegaderm 4 x 4 (1626W) opened to sterile field. 7:26:29 Versed 0.5 mg I.V. was administered by Babar Mayfield RN; for sedation; Verbal order read back and verified. 7:26:36 Fentanyl 25 mcg I.V. was administered by Babar Mayfield RN; for sedation; Verbal order read back and verified. 7:27:28 IV Extension Set opened to sterile field. 7:34:04 Procedure started. 7:34:12 Local anesthetic to right femoral artery with Lidocaine 2% by Michael Rose MD.INITIAL ACCESS ONLY 7:36:42 A 5 Fr sheath was inserted into the Right Femoral vein 7:37:00 SHEATH 5FR [place] (LQX094) opened to sterile field. 7:39:41 A 5 Fr sheath was inserted into the Right Femoral artery 7:40:37 A MULTIPACK JL 4.0 5Fr catheter was advanced over the wire and used for Procedure. 7:40:55 LCA angiography performed. 7:40:57 Injector settings: Ml/sec: 3, Volume: 6, 7:42:44 Catheter exchanged over wire. 7:43:15 A MULTIPACK 3DRC 5Fr catheter was advanced over the wire and used for Procedure. 7:44:19 UNABLE TO ENGAGE RCA WITH 3DRC CHANGING GUIDES. 7:44:25 Catheter exchanged over wire. 7:45:31 A DIAGNOSTIC AL1 5Fr catheter ([id number]) was advanced over the wire and used for Procedure. 7:47:16 UNABLE TO ENGAGE WITH AL 1 CHANGING GUIDES. 7:47:17 Catheter exchanged over wire. 7:48:34 GUIDE 5FR AR1.0 catheter ([id number]) opened to sterile field. 7:49:36 UNABLE TO ENGAGE WITH AR 1 CHANGING GUIDES. 7:49:48 Catheter exchanged over wire. 7:50:08 GUIDE 5FR AR2.0 catheter (JJ8GX32) opened to sterile field. 7:52:06 RCA angiography performed. 7:52:09 Injector settings: Ml/sec: 3, Volume: 6, 7:52:11 Catheter exchanged over wire. 7:53:23 A MULTIPACK Pigtail 5 Fr catheter was advanced over the wire and used for Procedure. 7:53:35 LV gram done using BALTAZAR 7:53:47 LV hemodynamics recorded. 7:53:50 Injector settings: Ml/sec: 5, Volume: 15, 7:54:58 EF : 30 % 7:58:02 EXOSEAL 5Fr (EX500) opened to sterile field. 7:58:05 Catheter removed. 7:58:16 Sheath removed intact; hemostasis achieved with Exoseal to the Right Femoral artery. 7:58:21 Sheath removed intact; hemostasis achieved with Mechanical Compression to the Right Femoral vein. 7:58:39 Fluoroscopy time 06.70 minutes. 7:58:43 Fluoroscopy dose: 660 mGy 7:58:43 Flurop Dose total: 660 7:58:54 Dose Area Product 58928 mGy/cm. 7:59:09 Contrast amount:Isovue 370 64ml. 7:59:15 Maximum allowable dose exceeded? No. 7:59:16 Sharps counted by scrub and verified by R.N. 7:59:21 Post-op/insertion site Right Femoral artery dressed using a 4 x 4 and Tegaderm. 7:59:30 Post-op/insertion site Right Femoral vein dressed using a 4 x 4 and Tegaderm. 7:59:35 Post right femoral artery:stable, soft, clean and dry 7:59:42 Post right femoral vein:stable, soft 7:59:45 Post Procedure Pulses reassessed and unchanged 7:59:48 Post procedure: right dorsailis pedis pulse 1+ Palpable, but thready & weak; easily obliterated. 7:59:53 Post-procedure physical assessment completed. ASA score P 2 - A patient with mild systemic disease as per Michael Rose MD. 7:59:55 Post procedure rhythm: unchanged. 7:59:58 Estimated blood loss: 5 ml 8:00:00 Procedure ended.(Physican Out) 8:00:00 Post procedure instruction explained to patient.Patient verbalizes understanding. 8:00:00 Patient needs reinforcement of post procedure teaching. 8:01:03 Procedure type changed to Cath procedure, Diagnostic procedure, LHC, [facility] w/Coronaries, Sedation Charges, Moderate Sedation 25-39 minutes 8:01:42 Procedure and supply charges have been captured, reviewed, submitted and are correct. 8:01:45 Procedure Complication : No complications 8:01:50 [facility] Findings: MARY LOU- will discuss options w/ pt 8:01:51 Operative report dictated upon procedure completion. 8:01:52 See physician's report for complete and final results. 8:01:55 Report given to Med II. 8:02:00 Patient transfered to Med II with Bed. 8:02:03 Procedure ended. 8:02:03 Full Disclosure recording stopped 8:02:20 End room use (Document Last) 8:03:01 End room use (Document Last) 8:03:17 End room use (Document Last) 8:04:52 Vital chart was stopped Device Usage Item Name Manufacture Quantity Catalog Hospital Part Current Minimal L ot# / Number Charge Number Stock Stock Serial# Code ACIST Acist 1 45597 151320 528370 712516 20 Syringe Medical (86747) Systems Inc Bag Microtek 1 2001S 990407 78070 201215 5 Decanter Medical Inc. () Medline Medline 1 [id number] 635302 15334 031641 5 Cath Pack ([id number]) ACIST Hand Acist 1 69044 278885 903251 640245 5 Control Medical (92959) Systems Inc ACIST Acist 1 51267 014023 599308 719022 5 Manifold Medical (08421) Systems Inc DIAGNOSTIC Cardinal 1 LX2525 405139 12678 202620 30 Multipack Health 5Fr catheter set (BY5173) SHEATH 5FR Terumo 2 FVJ056 079632 849289 480997 5 [place] (XFI852) EMERALD Cardinal 1 502455 598726 792519 689993 5 Guide Wire Health (502455) Tegaderm 4 3M 1 1626W 316273 334186 721994 5 x 4 (1626W) IV Hospira 1 30562-90 800728 37643 391501 5 Extension Set MULTIPACK Cardinal 1 385759 5 JL 4.0 5Fr Health catheter MULTIPACK Cardinal 1 653974 5 3DRC 5Fr Health catheter DIAGNOSTIC Cardinal 1 [id number] 707390 382282 720083 15 AL1 5Fr Health catheter (318432W) GUIDE 5FR Medtronic 1 HH9NA18 061600 881786 580479 1 AR1.0 catheter (IR1DS38) GUIDE 5FR Medtronic 1 [id number] 928040 839416 209524 1 AR2.0 catheter (BZ3QL20) MULTIPACK Cardinal 1 802189 5 Pigtail 5 Health Fr catheter EXOSEAL 5Fr Cardinal 1 EX500 875173 942472 688699 10 (EX500) Health Signature Audit [place] Stage Time Signature Unsigned Intra-Procedure 08/26/2020 Lilly Perez 8:03:01 AM RT(R) Intra-Procedure 08/26/2020 Kevyn Gifford RN 8:03:18 AM Intra-Procedure 08/26/2020 Michael Rose MD 8:05:38 AM [place] [id number] [place] [place] [address]
[2020-08-25 07:20] VITALS: BP 170/72
[2020-08-25 07:35] LABS: ANION GAP 17.8 mmol/L (8-16); CALCIUM 9.7 mg/dL (8.5-10.1); CARBON DIOXIDE 20.5 mmol/L (21.0-32.0); CREATININE - SERUM 1.2 mg/dL (0.6-1.3); POTASSIUM - SERUM 4.3 mmol/L (3.5-5.1)
[2020-08-25 07:39] LABS: APTT 39.4 SECONDS (22.8-39.4); INR 1.24 (0.85-1.17); PROTIME 14.4 SECONDS (11.6-15.0)
[2020-08-25 07:46] LABS: ALBUMIN 3.4 g/dL (3.4-5.0); BILIRUBIN - TOTAL 0.36 mg/dL (0.2-1.3); MAGNESIUM - SERUM 1.4 mg/dL (1.8-2.4); TROPONIN-I 0.029 ng/mL (0.000-0.060)
[2020-08-25 08:14] LABS: BASOPHILS 0.9 % (0-2); EOSINOPHILS 1.6 % (0-7); HEMATOCRIT 37.6 % (36.0-48.0); HEMOGLOBIN 12.5 g/dL (12-16); LYMPHOCYTES 25.2 % (15-50); MCH 30.6 pg (26.0-34.0); MCHC 33.3 g/dL (31.0-37.0); MCV 91.9 fL (80.0-100.0); MONOCYTES 11.6 % (2-11); NEUTROPHILS 60.7 % (40-80); PLATELET COUNT 216 10x3/uL (130-400); RBC 4.09 10x6/uL (4.00-5.40); RDW 14.8 % (11.5-14.5); WBC 7.9 10x3/uL (4.8-10.8)
--- NOTE | 2020-08-25 08:26 | NUR ---
RAMEZ WORKS (DAUGHTER) [phone]
[2020-08-25 08:58] LABS: CHOL - HDL RATIO 4.7 ratio (2.3-4.1); DIGOXIN 0.17 ng/mL (0.90-2.00); LDL-HDL RATIO 2.8 ratio (1.5-3.5); THYROID STIMULATING HORMONE 1.08 uIU/mL (0.36-3.74)
[2020-08-25 10:40] LABS: CKMB 1.3 U/L (0.0-3.6); CREATINE KINASE 57 UL (21-215)
[2020-08-25 10:42] LABS: TROPONIN-I < 0.017 ng/mL (0.000-0.060)
[2020-08-25 11:33] VITALS: BP 172/78
[2020-08-25 15:12] LABS: CKMB 1.8 U/L (0.0-3.6); CREATINE KINASE 69 UL (21-215)
[2020-08-25 15:33] VITALS: BP 177/93
[2020-08-25 15:35] LABS: TROPONIN-I 0.031 ng/mL (0.000-0.060)
[2020-08-25] MEDS ORDERED: NYAMYC60 GM TP (15:40)
[2020-08-25] MEDS ORDERED: FISH OIL 1,0001 CA1 PO (15:44)
[2020-08-25 16:19] VITALS: BP 143/93; Ht 165.1 cm; Wt 86.4 kg
[2020-08-25 21:47] LABS: CKMB 1.7 U/L (0.0-3.6); CREATINE KINASE 50 UL (21-215); TROPONIN-I 0.046 ng/mL (0.000-0.060)
[2020-08-26 00:11] VITALS: BP 116/60
--- NOTE | 2020-08-26 01:45 | NUR ---
TEACHER LIP READING AT BED SIDE, PREP AND CLIP DONE FOR CARDIAC CATH IN AM.
--- NOTE | 2020-08-26 04:57 | NUR ---
I have reviewed this patient and I concur with the Shift Assessment completed by the Licensed Practical Nurse today this shift.
[2020-08-26 05:26] VITALS: BP 98/58
[2020-08-26 05:36] LABS: BASOPHILS 0.4 % (0-2); EOSINOPHILS 2.1 % (0-7); HEMATOCRIT 35.3 % (36.0-48.0); HEMOGLOBIN 11.8 g/dL (12-16); LYMPHOCYTES 18.7 % (15-50); MCH 30.5 pg (26.0-34.0); MCHC 33.6 g/dL (31.0-37.0); MCV 90.9 fL (80.0-100.0); MEAN PLATELET VOLUME 7.7 fL (7.4-10.4); NEUTROPHILS 67.8 % (40-80); PLATELET COUNT 236 10x3/uL (130-400); RBC 3.88 10x6/uL (4.00-5.40); RDW 14.7 % (11.5-14.5)
[2020-08-26 05:37] LABS: WBC 5.9 10x3/uL (4.8-10.8)
[2020-08-26 05:55] LABS: ALBUMIN 3.1 g/dL (3.4-5.0); BILIRUBIN - TOTAL 0.33 mg/dL (0.2-1.3); CALCIUM 8.7 mg/dL (8.5-10.1); CARBON DIOXIDE 23.3 mmol/L (21.0-32.0); CREATININE - SERUM 1.1 mg/dL (0.6-1.3); MAGNESIUM - SERUM 1.5 mg/dL (1.8-2.4); PHOSPHOROUS 4.4 mg/dL (2.5-4.9); POTASSIUM - SERUM 4.3 mmol/L (3.5-5.1); PROTEIN - SERUM 6.3 g/dL (6.4-8.2)
--- NOTE | 2020-08-26 07:16 | NUR ---
PRE-OPS GIVEN. LEAVING TO FOREIGN BROADCAST SPECIALIST BY BED.
--- NOTE | 2020-08-26 08:33 | NUR ---
BACK FROM PIN SETTER. VS WNL. RIGHT GROIN STABLE WITHOUT BLEEDING OR HEMATOMA NOTED. WILL MONITOR.
--- NOTE | 2020-08-26 10:16 | NUR ---
BED REST UP. GROIN STABLE.
[2020-08-26 12:23] VITALS: BP 147/69
[2020-08-26] MEDS ORDERED: RANEXA500 MG PO (13:06)
--- NOTE | 2020-08-26 14:55 | NUR ---
IV AND TELEMETRY DCD. DC PLANS GIVEN. UNDERSTANDING VOICED. WAITING ON DAUGHTER FOR RIDE HOME.
[2020-08-26 17:11] VITALS: BP 105/48
--- NOTE | 2020-08-26 18:22 | NUR ---
DC PLANS GONE OVER WITH DAUGHTER. ESCORTED TO CAR BY W/C.
== END 2020-08-26 18:23 | disposition home or self-care (01) ==
LOC: D.ER 07:00 → D.M2 14:35 → OBSVTIME 14:35 → D.M2 14:35
PROVIDERS: Emergency Medicine; ADMIT Emergency Medicine; ATTEND Emergency Medicine
DX: I25.110 Atherosclerotic heart disease of native coronary artery with unstable angina pectoris (principal); R07.89 Other chest pain; E83.42 Hypomagnesemia; I16.0 Hypertensive urgency; E03.9 Hypothyroidism, unspecified; I73.9 Peripheral vascular disease, unspecified; E78.5 Hyperlipidemia, unspecified; I50.9 Heart failure, unspecified; I11.0 Hypertensive heart disease with heart failure